=== PATIENT | female | born 1995 | race Hispanic/Latino ===

== ENCOUNTER → 2025-01-06 15:54 | Outpatient (CLI) | payer OTHER, SELFPAY ==
--- NOTE | 2025-01-06 15:58 | DI.US.S_ITS ---
PROCEDURE: US PELVIC COMPLETE INDICATIONS: HEAVY MENSTURAL BLEEDING TECHNIQUE: Real-time scanning was performed of the pelvic organs, with image documentation. Additional endovaginal scanning was necessary due to incomplete visualization of the adnexal and endometrial structures by transabdominal scanning. COMPARISON: None. FINDINGS: Uterus: 10.2 x 4.5 x 3.5 cm. Endometrium measures 14 mm, which is the upper limit of normal. No discrete focal lesion is identified. Retroverted positioning. Ovaries: Nonenlarged right ovary measuring 7 cc. Mildly enlarged left ovary measuring 16 cc, with a dominant follicle up to 2.4 cm. Other small follicles are present. Other: No pathologic free fluid. IMPRESSION: Endometrium measures 14 mm, which is the upper limit of normal. No discrete focal lesion. Consider 1-2 month follow-up to ensure stability/decreased in thickness. Mildly enlarged left ovary with a presumed dominant follicle. Dictated by: Jarrell Youngblood M.D. on 01/07/2025 at 1:11 Approved by: Jarrell Youngblood M.D. on 01/07/2025 at 1:12
== END ==
PROVIDERS: Referring Provider Nurse Practitioner Family; Visit Provider Nurse Practitioner Family
DX: N92.0 Excessive and frequent menstruation with regular cycle (principal); N83.8 Other noninflammatory disorders of ovary, fallopian tube and broad ligament
CPT/HCPCS: 76830; 76856

== ENCOUNTER → 2025-03-09 13:37 | Outpatient (CLI) | payer OTHER, SELFPAY ==
--- NOTE | 2025-03-09 13:38 | DI.US.S_ITS ---
PROCEDURE: US PELVIC COMPLETE INDICATIONS: F/U ENDOMETRIAL HYPERPLASIA TECHNIQUE: Real-time scanning was performed of the pelvic organs, with image documentation. Additional endovaginal scanning was necessary due to incomplete visualization of the adnexal and endometrial structures by transabdominal scanning. COMPARISON: [facility], , PELVIC COMPLETE, 01/06/2025, 16:17. FINDINGS: Uterus: Anteverted positioning. Endometrium has decreased in thickness measuring 8 mm. Overall uterus measures 8.6 x 3.3 x 4.7 cm. Ovaries: Nonenlarged bilaterally measuring 89 cc. Left dominant follicle measures 1.4 cm Other: No pathologic free fluid IMPRESSION: Endometrium has decreased in thickness measuring 8 mm. Nonenlarged ovaries. Dictated by: Jarrell Youngblood M.D. on 03/10/2025 at 7:12 Approved by: Jarrell Youngblood M.D. on 03/10/2025 at 7:14
== END ==
PROVIDERS: Referring Provider Nurse Practitioner Family; Visit Provider Nurse Practitioner Family
DX: N92.0 Excessive and frequent menstruation with regular cycle (principal)
CPT/HCPCS: 76830; 76856